=== PATIENT | male | born 1960 | race Caucasian/White ===

== ENCOUNTER 2023-05-01 14:10 | Observation (INO) | payer BC ==
[~2023-05-01] VITALS: Ht 182.9 cm; Wt 104.6 kg
[2023-05-01 14:52] LABS: BASOPHILS # (AUTO) 0.03 K/uL (0.00-0.20); BASOPHILS % (AUTO) 0.4 % (0.0-5.0); EOSINOPHILS # (AUTO) 0.09 K/uL (0.00-0.70); EOSINOPHILS % (AUTO) 1.3 % (0.0-8.0); HEMATOCRIT 43.6 % (42-54); IMMATURE GRANULOCYTE ABSOLUTE 0.03 K/uL (0-1); LYMPHOCYTES # (AUTO) 1.7 K/uL (1.0-4.8); LYMPHOCYTES % (AUTO) 24.2 % (21.0-51.0); MEAN CORPUSCULAR HEMOGLOBIN 31.8 pg (27.0-33.0); MEAN CORPUSCULAR HGB CONC 34.9 g/dL (32.0-36.0); MEAN CORPUSCULAR VOLUME 91.2 fL (79-99); MONOCYTES # (AUTO) 0.4 K/uL (0.1-1.0); MONOCYTES % (AUTO) 5.9 % (3.0-13.0); NEUTROPHILS # (AUTO) 4.8 K/uL (1.8-7.7); NEUTROPHILS % (AUTO) 67.8 % (40.0-77.0); PLATELET COUNT (AUTO) 212 K/uL (130-400); RED BLOOD CELL COUNT(AUTO) 4.78 MIL/uL (4.50-6.20); RED CELL DISTRIBUTION WIDTH 12.9 % (11.0-15.5); WHITE BLOOD COUNT (AUTO) 7.1 K/uL (4.8-10.8)
[2023-05-01 15:06] LABS: CREATININE 1.5 mg/dL (0.5-1.5); POTASSIUM 5.5 mmol/L (3.5-5.1)
[2023-05-01 15:11] LABS: ALBUMIN 4.4 g/dL (3.5-5.0); BILIRUBIN,TOTAL 0.3 mg/dL (0.2-1.0); MAGNESIUM 2.3 mg/dL (1.80-2.40)
[2023-05-01] MEDS ORDERED: ACETAMINOPHEN 325 MG TAB PO PRN (17:00)
[2023-05-01] MEDS ORDERED: MORPHINE 2 MG SYG IVP PRN (17:00)
[2023-05-01 17:21] LABS: INR < 0.93 (0.85-1.15); PROTHROMBIN TIME 10.7 SEC (9.6-11.6)
[2023-05-01 17:22] LABS: PARTIAL THROMBOPLASTIN TIME 27.6 SEC (26.3-35.5)
[2023-05-01] MEDS: 0.9%NACL 1000ML 1,000 ML IV SCH (17:25)
[2023-05-01 17:40] LABS: APPEARANCE,URINE CLEAR (CLEAR); BILIRUBIN,URINE NEGATIVE (NEGATIVE); COLOR,URINE LIGHT-YELLOW (YELLOW); GLUCOSE, URINE (UA) NEGATIVE (NEGATIVE); KETONES,URINE NEGATIVE (NEGATIVE); LEUKOCYTE ESTERASE ,URINE NEGATIVE Leu/uL (NEGATIVE); NITRATE,URINE NEGATIVE (NEGATIVE); OCCULT BLOOD,URINE NEGATIVE (NEGATIVE); PROTEIN,URINE NEGATIVE (NEGATIVE); UROBILINOGEN,URINE 0.2 mg/dL (0.2-1.0)
[2023-05-01 17:41] LABS: CHOLESTEROL 125 mg/dL (<200); HDL CHOLESTEROL 52 mg/dL (29-71); LDL DIRECT 54 mg/dL (0-99); TRIGLYCERIDES 156 mg/dL (30-200)
[2023-05-01 17:44] LABS: HEMOGLOBIN A1C 5.6 % (4.0-6.0)
[2023-05-01 17:57] LABS: ADD UA MICROSCOPIC NO
[2023-05-01 18:28] LABS: D-DIMER 442 ng/mL (0-500)
[2023-05-01] MEDS: METOPROLOL TARTRATE 25 MG TAB PO SCH (20:20)
[2023-05-01] MEDS ORDERED: ATORVASTATIN 40 MG TABLET PO SCH (21:00)
[2023-05-01] MEDS ORDERED: FAMOTIDINE 20MG TAB PO SCH (21:00)
[2023-05-02] VITALS: BP 122/66; PULSE 78; RESP 20
[2023-05-02 04:00] VITALS: BP 106/49; PULSE 74; RESP 19
[2023-05-02] MEDS: 0.9%NACL 1000ML 1,000 ML IV SCH (06:03)
[2023-05-02 07:00] VITALS: BP 105/49; PULSE 65; RESP 18
[2023-05-02] MEDS ORDERED: ALLO200T PO (07:51)
[2023-05-02] MEDS ORDERED: BUPR-49 PO (07:51)
[2023-05-02] MEDS ORDERED: ATOR40TA71 PO (07:51)
[2023-05-02] MEDS ORDERED: ASPI-1443 PO (07:51)
[2023-05-02] MEDS ORDERED: TAMS-1 PO (07:51)
[2023-05-02] MEDS ORDERED: LISI40TA9 PO (07:51)
[2023-05-02] MEDS ORDERED: MELO-108 PO (07:51)
[2023-05-02 07:58] LABS: BASOPHILS # (AUTO) 0.04 K/uL (0.00-0.20); BASOPHILS % (AUTO) 0.6 % (0.0-5.0); EOSINOPHILS # (AUTO) 0.27 K/uL (0.00-0.70); EOSINOPHILS % (AUTO) 4.3 % (0.0-8.0); HEMATOCRIT 39.4 % (42-54); IMMATURE GRANULOCYTE ABSOLUTE 0.02 K/uL (0-1); LYMPHOCYTES # (AUTO) 2.2 K/uL (1.0-4.8); LYMPHOCYTES % (AUTO) 35.7 % (21.0-51.0); MEAN CORPUSCULAR HEMOGLOBIN 32.1 pg (27.0-33.0); MEAN CORPUSCULAR HGB CONC 33.8 g/dL (32.0-36.0); MEAN CORPUSCULAR VOLUME 95.2 fL (79-99); MONOCYTES # (AUTO) 0.4 K/uL (0.1-1.0); MONOCYTES % (AUTO) 6.9 % (3.0-13.0); NEUTROPHILS # (AUTO) 3.2 K/uL (1.8-7.7); NEUTROPHILS % (AUTO) 52.2 % (40.0-77.0); PLATELET COUNT (AUTO) 177 K/uL (130-400); RED BLOOD CELL COUNT(AUTO) 4.14 MIL/uL (4.50-6.20); RED CELL DISTRIBUTION WIDTH 12.9 % (11.0-15.5); WHITE BLOOD COUNT (AUTO) 6.2 K/uL (4.8-10.8)
[2023-05-02 08:00] VITALS: O2SAT 98
[2023-05-02 08:19] LABS: ALBUMIN 3.6 g/dL (3.5-5.0); BILIRUBIN,TOTAL 0.3 mg/dL (0.2-1.0); CREATININE 1.3 mg/dL (0.5-1.5); POTASSIUM 5.1 mmol/L (3.5-5.1); TOTAL PROTEIN, SERUM 6.4 g/dL (6.0-8.3)
[2023-05-02] MEDS: METOPROLOL TARTRATE 25 MG TAB PO SCH (08:49)
[2023-05-02] MEDS ORDERED: ASPIRIN 81 MG EC TAB PO SCH (09:00)
[2023-05-02] MEDS ORDERED: ENOXAPARIN SODIUM 40 MG/0.4 ML SYRINGE SQ SCH (09:00)
[2023-05-02] MEDS ORDERED: NON-FORMULARY MEDICATION 1 EACH (Bupropion HCl (Bupropion Xl) 150 MG) PO SCH (09:00)
[2023-05-02] MEDS ORDERED: BUPROPION HCL 150 MG TABLET.SA PO SCH ×2 (09:00)
[2023-05-02] MEDS ORDERED: TAMSULOSIN HCL 0.4 MG CAP.ER.24H PO SCH (09:00)
[2023-05-02 12:00] VITALS: BP 128/68; PULSE 60; RESP 16
[2023-05-03] MEDS ORDERED: AMLO5TAB5 PO (10:57)
== END 2023-05-02 17:45 | disposition home or self-care (01) ==
LOC: EDH 14:10 → EDHIP 15:40 → 4AH 23:51
PROVIDERS: ADMIT Hospitalist; ATTEND Hospitalist
DX: R07.89 Other chest pain (principal); I20.0 Unstable angina; E87.1 Hypo-osmolality and hyponatremia; E87.5 Hyperkalemia; E87.8 Other disorders of electrolyte and fluid balance, not elsewhere classified; E78.5 Hyperlipidemia, unspecified; G47.00 Insomnia, unspecified; N40.0 Benign prostatic hyperplasia without lower urinary tract symptoms; E78.00 Pure hypercholesterolemia, unspecified; I10 Essential (primary) hypertension; N39.0 Urinary tract infection, site not specified; M10.9 Gout, unspecified; F32.A Depression, unspecified; Z86.79 Personal history of other diseases of the circulatory system; Z79.82 Long term (current) use of aspirin; Z96.642 Presence of left artificial hip joint; Z79.899 Other long term (current) drug therapy
CPT/HCPCS: 96360; 99285; 83036; 82550; 83735; 84484 ×4; 80061; 80053 ×2; 85025 ×2; 85378; 85610; 85730; 81003; 36415 ×2; 71045; 93005; 96372; 96361; 76770; 93306; 93356; G0378 ×25; J1650

== ENCOUNTER → 2023-06-01 | Outpatient (CLI) | payer BC ==
[~2023-06-01] MED LIST: ASPI-1443 PO; ATOR40TA71 PO; BUPR-49 PO; LISI40TA9 PO; MELO-108 PO; TAMS-1 PO
[2023-06-01] MEDS: REGADENOSON 0.4 MG/5 ML PF SYG IVP SCH (12:45)
== END | disposition home or self-care (01) ==
LOC: RAH 08:49
PROVIDERS: ATTEND Internal Medicine Cardiovascular Disease
DX: I48.91 Unspecified atrial fibrillation (principal); I49.3 Ventricular premature depolarization; R07.9 Chest pain, unspecified
CPT/HCPCS: 78452; 96374; 93017; J2785; A9500 ×2